=== PATIENT | female | born 1970 | race Caucasian/White ===

== ENCOUNTER 2016-08-20 15:02 | Emergency (ER) | payer MEDICAID, OTHER ==
[~2016-08-20] VITALS: Wt 70.0 kg
[2016-08-20] MEDS ORDERED: hydrALAzine 20 MG INJ IV ONE (22:30)
[2016-08-20 22:32] VITALS: BP 132/75; PULSE 85
[2016-08-20] MEDS ORDERED: ACETAMINOPHEN 500 MG TAB PO STA (22:35)
[2016-08-20] MEDS ORDERED: ACETAMINOPHEN 500 MG TAB ONE (22:37)
--- NOTE | 2016-08-20 22:37 | RADRPT ---
PROCEDURE: CT Head without contrast. CLINICAL INDICATION: Headaches TECHNIQUE: The study was performed utilizing a GE 64-slice multidetector CT scanner. Direct spiral axial CT images of the brain were obtained from the vertex to the skull base without contrast. Cor onal and sagittal reformat images are provided. The CTDI vol is 39.64 mGy and the DLP is 554.95 mGy -cm. The images were reviewed on a PACS workstation. COMPARISON: No prior studies are available for comparison. FINDINGS: The ventricles and cortical sulci are within normal limits. The jordan-white matter differentiation i s maintained. No intra or extra-axial fluid collection or mass effect or shift in the midline struc tures is seen. The visualized paranasal sinuses, mastoid air cells, orbits, and calvarium are unrem arkable. IMPRESSION: Unremarkable CT of the head without contrast. RPTAT: HPNM Physician Ralph Date Time Electronically viewed and signed by Physician Ralph on 08/20/2016 22:37 /
[2016-08-20 22:51] LABS: ADD SCAN DIFF NO
[2016-08-20] MEDS ORDERED: METF1000 PO (22:52)
[2016-08-20] MEDS ORDERED: CAPT25TA3 PO (22:52)
[2016-08-20 23:05] LABS: CHLORIDE 99 mmol/L (97-110); INR 0.98; POTASSIUM 3.7 mmol/L (3.5-5.1); SODIUM 136 mmol/L (135-144)
[2016-08-20 23:06] LABS: BASOPHILS % 0.5 % (0.0-2.0); EOSINOPHILS # 0.1 10^3/ul (0.0-0.5); EOSINOPHILS % 0.9 % (0.0-7.0); HEMATOCRIT 33.5 % (37.0-47.0); HEMOGLOBIN 10.3 g/dl (12.0-16.0); LYMPHOCYTES # 3.1 10^3/ul (0.8-2.9); LYMPHOCYTES % 35.5 % (15.0-51.0); MEAN CORPUSCULAR HEMOGLOBIN 21.1 pg (29.0-33.0); MEAN CORPUSCULAR HGB CONC 30.7 g/dl (32.0-37.0); MEAN CORPUSCULAR VOLUME 68.8 fl (82.0-101.0); MEAN PLATELET VOLUME 10.6 fl (7.4-10.4); MONOCYTE # 0.5 10^3/ul (0.3-0.9); MONOCYTES % 5.9 % (0.0-11.0); NEUTROPHIL # 4.9 10^3/ul (1.6-7.5); PARTIAL THROMBOPLASTIN TIME 30.6 Sec (25.0-35.0); PLATELET COUNT 291 10^3/UL (140-415); RED BLOOD COUNT 4.87 10^6/ul (4.20-5.40); RED CELL DISTRIBUTION WIDTH 17.6 % (11.5-14.5); WHITE BLOOD COUNT 8.6 10^3/ul (4.8-10.8)
[2016-08-20 23:08] LABS: ANION GAP 17 (8-16); BLOOD UREA NITROGEN 11 mg/dl (7-20); CARBON DIOXIDE 24 mmol/L (21-31); CREATININE 0.48 mg/dl (0.44-1.00)
[2016-08-20 23:09] LABS: CALCIUM 8.9 mg/dl (8.4-10.2); GLUCOSE 256 mg/dl (70-220)
--- NOTE | 2016-08-20 23:11 | RADRPT ---
PROCEDURE: XR Chest. CLINICAL INDICATION: Headache. Chest pain. TECHNIQUE: Single frontal view of the chest was obtained COMPARISON: None FINDINGS: The heart and mediastinum are within normal limits. The lungs are clear. There is no pleural effusion or pneumothorax. IMPRESSION: No acute disease. RPTAT: [facility] Physician Sowmya Date Time Electronically viewed and signed by Physician Sowmya on 08/20/2016 23:10 RS/
[2016-08-20 23:29] LABS: TROPONIN-I < 0.012 ng/ml (0.00-0.12)
[2016-08-21] MEDS ORDERED: LORA1TAB PO (00:25)
--- NOTE | 2016-08-21 00:25 | ERD ---
ER Documentation Chief Complaint Date/Time DATE: 08/21/16 TIME: 00:23 Chief Complaint HEADACHE AND FACIAL NUMBNESS FOR 3 DAYS. NO NEURO MOTOR DEFICIT HPI Is a 46 year female, with headache and vision over 3 days. She denies any focal neurologic complaints. She denies any trauma. She denies any visual acuity changes. Patient states that she has had some tearing from the affected side. Denies any other current issues ROS All systems reviewed and are negative except as per history of present illness. Medications Home Meds Reported Medications Captopril* (Captopril*) 25 Mg Tablet, 25 MG PO DAILY, #30 TAB 08/20/16 Metformin Hcl* (Metformin Hcl*) 1,000 Mg Tablet, 1000 MG PO WITH BREAKFAST DINNE , #60 TAB 08/20/16 Allergies Allergies: Coded Allergies: No Known Allergy (Unverified , 08/20/16) PMhx/Soc History of Surgery: No Anesthesia Reaction: No Hx Neurological Disorder: No Hx Respiratory Disorders: No Hx Cardiac Disorders: Yes (HTN) Hx Psychiatric Problems: No Hx Miscellaneous Medical Probl: Yes (DM) Hx Alcohol Use: No Hx Substance Use: No Hx Tobacco Use: No Smoking Status: Never smoker Physical Exam Vitals Vital Signs Date Time Temp Pulse Resp B/P Pulse Ox O2 Delivery O2 Flow Rate FiO2 08/20/16 22:32 85 132/75 08/20/16 15:12 98.8 115 20 215/100 98 Physical Exam Const: [] Head: Atraumatic Eyes: Normal Conjunctiva ENT: Normal External Ears, Nose and Mouth. Neck: Full range of motion..~ No meningismus. Resp: Clear to auscultation bilaterally Cardio: Regular rate and rhythm, no murmurs Abd: Soft, non tender, non distended. Normal bowel sounds Skin: No petechiae or rashes Back: No midline or flank tenderness Ext: No cyanosis, or edema Neur: Awake and alert Psych: Normal Mood and Affect Result Diagram: 08/20/16222908/20/162229 Results 24 hrs Laboratory Tests Test 08/20/16 22:30 Activated Partial Thromboplast Time 30.6Sec Anion Gap 17 Basophils # 0.010^3/ul Basophils % 0.5% Blood Urea Nitrogen 11mg/dl Calcium Level 8.9mg/dl Carbon Dioxide Level 24mmol/L Chloride Level 99mmol/L Creatinine 0.48mg/dl Eosinophils # 0.110^3/ul Eosinophils % 0.9% Glucose Level 256mg/dl Hematocrit 33.5% Hemoglobin 10.3g/dl INR International Normalized Ratio 0.98 Lymphocytes # 3.110^3/ul Lymphocytes % 35.5% Mean Corpuscular Hemoglobin 21.1pg Mean Corpuscular Hemoglobin Concent 30.7g/dl Mean Corpuscular Volume 68.8fl Mean Platelet Volume 10.6fl Monocytes # 0.510^3/ul Monocytes % 5.9% Neutrophils # 4.910^3/ul Neutrophils % 57.0% Nucleated Red Blood Cells # 0.010^3/ul Nucleated Red Blood Cells % 0.0/100WBC Platelet Count 73441^3/UL Potassium Level 3.7mmol/L Prothrombin Time 13.0Sec Prothrombin Time Ratio 1.0 Red Blood Count 4.8710^6/ul Red Cell Distribution Width 17.6% Sodium Level 136mmol/L Troponin I < 0.012ng/ml White Blood Count 8.610^3/ul Current Medications Medications (Trade) Dose Ordered Sig/Kimberly Route PRN Reason Start Time Stop Time Status Last Admin Dose Admin Clonidine (Catapres) 0.1 mg ONCE ONCE PO 08/20/16 22:00 08/20/16 22:01 DC 08/20/16 22:00 Hydralazine HCl (Apresoline) 20 mg ONCE ONCE IV 08/20/16 22:30 08/20/16 22:31 DC Acetaminophen (Tylenol Tab) 1,000 mg ONCE STAT PO 08/20/16 22:35 08/20/16 22:37 DC 08/20/16 22:40 Acetaminophen (Tylenol Tab) 500 mg STK-MED ONCE .ROUTE 08/20/16 22:37 08/20/16 22:38 DC Procedures/MDM EKG: Rate/Rhythm: Normal Sinus Rhythm QRS, ST, T-waves: No changes consistent w/ acute ischemia Impression: No evidence of ischemia or arrhythmia Chest X-ray 1V Interpreted by me: Soft Tissue: No acute abnormalities Bones: No acute abnormalities Mediastinum/Cardiac Silhouette/Lungs: No acute abnormalities CT of the head is negative. 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 Blood pressure is since normalized. This likely stress related issue. At this point is clinically stable feels much better and has some numbness present resolution. She is continues to be nonfocal neurological. She will be discharged home with a short course of lorazepam. Departure Diagnosis: Primary Impression: Panic attack Condition: Stable RENATE FERNÁNDEZ Aug 21, 2016 00:24
== END 2016-08-21 01:50 | disposition home or self-care (01) ==
LOC: E/R 15:02
DX: F41.0 Panic disorder [episodic paroxysmal anxiety] (principal); E11.9 Type 2 diabetes mellitus without complications; I10 Essential (primary) hypertension; R07.9 Chest pain, unspecified; Z79.84 Long term (current) use of oral hypoglycemic drugs
CPT/HCPCS: 70450; 71010; 80048; 84484; 85025; 85610; 85730; 93005; Z7502; Z7610

== ENCOUNTER 2016-11-09 16:12 | Emergency (ER) | payer MEDICAID ==
[~2016-11-09] VITALS: Wt 68.0 kg
[~2016-11-09 16:12] MED LIST: CAPT25TA3 PO; LORA1TAB PO; METF1000 PO
--- NOTE | 2016-11-09 16:47 | ERA ---
ER Documentation Chief Complaint Date/Time DATE: 11/09/16 TIME: 16:46 Chief Complaint CHEST PAIN HPI The patient is a 46-year-old female, presenting to the ER because of intermittent substernal chest pain that began yesterday about 10 AM at work. 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 She denies similar symptoms previously, denies fever, chills, neck pain, chest pain with exertion or vomiting or diaphoresis. She denies abdominal pain complain of nausea and vomited 3 times, initially foot then mucus. She denies dysuria, polyuria, diarrhea. She does not drink nor does any illicit drug, smokes socially. She stopped taking her Metformin and captopril about 2 months ago Past medical history: Hypertension, diabetes mellitus Past surgical history: None ROS All systems reviewed and are negative except as per history of present illness. Medications Home Meds Active Scripts Lisinopril* (Lisinopril*) 5 Mg Tablet, 5 MG PO DAILY, #30 TAB Prov:PREETHI GALINDO MD 11/09/16 Metformin Hcl* (Metformin Hcl*) 500 Mg Tablet, 500 MG PO WITH BREAKFAST DINNE, # 30 TAB Prov:PREETHI GALINDO MD 11/09/16 Discontinued Reported Medications Captopril* (Captopril*) 25 Mg Tablet, 25 MG PO DAILY, #30 TAB 08/20/16 Metformin Hcl* (Metformin Hcl*) 1,000 Mg Tablet, 1000 MG PO WITH BREAKFAST DINNE , #60 TAB 08/20/16 Discontinued Scripts Lorazepam* (Lorazepam*) 1 Mg Tablet, 1 MG PO Q8H Y for ANXIETY, #10 TAB Prov:RENATE FERNÁNDEZ 08/21/16 Allergies Allergies: Coded Allergies: No Known Allergy (Unverified , 11/09/16) PMhx/Soc History of Surgery: No Anesthesia Reaction: No Hx Neurological Disorder: No Hx Respiratory Disorders: No Hx Cardiac Disorders: Yes (HTN) Hx Psychiatric Problems: No Hx Miscellaneous Medical Probl: Yes (DM) Hx Alcohol Use: No Hx Substance Use: No Hx Tobacco Use: No Physical Exam Vitals Vital Signs Date Time Temp Pulse Resp B/P Pulse Ox O2 Delivery O2 Flow Rate FiO2 11/09/16 19:25 98.7 68 17 131/68 100 Room Air 11/09/16 16:15 98.4 100 18 187/93 100 Physical Exam Const: No acute distress. Head: Atraumatic. Eyes: Normal Conjunctiva. ENT: Normal External Ears, Nose and Mouth. Neck: Full range of motion. No meningismus. Resp: Clear to auscultation bilaterally. Cardio: Regular rate and rhythm, no murmurs. Abd: Soft, non distended, normal bowel sounds, non tender. Skin: No petechiae or rashes. Back: No midline or flank tenderness. Ext: No cyanosis, or edema. Neur: Awake and alert. No focal deficit Psych: Normal Mood and Affect. Result Diagram: 11/09/16 1710 11/09/16 1710 Results 24 hrs Laboratory Tests Test 11/09/16 17:10 11/09/16 18:15 White Blood Count 8.110^3/ul Red Blood Count 4.8310^6/ul Hemoglobin 10.6g/dl Hematocrit 33.9% Mean Corpuscular Volume 70.2fl Mean Corpuscular Hemoglobin 21.9pg Mean Corpuscular Hemoglobin Concent 31.3g/dl Red Cell Distribution Width 15.9% Platelet Count 14060^3/UL Mean Platelet Volume 10.4fl Neutrophils % 61.6% Lymphocytes % 31.2% Monocytes % 5.3% Eosinophils % 1.2% Basophils % 0.6% Nucleated Red Blood Cells % 0.0/100WBC Neutrophils # 5.010^3/ul Lymphocytes # 2.510^3/ul Monocytes # 0.410^3/ul Eosinophils # 0.110^3/ul Basophils # 0.110^3/ul Nucleated Red Blood Cells # 0.010^3/ul Sodium Level 133mmol/L Potassium Level 4.0mmol/L Chloride Level 97mmol/L Carbon Dioxide Level 26mmol/L Anion Gap 14 Blood Urea Nitrogen 10mg/dl Creatinine 0.50mg/dl Glucose Level 317mg/dl Calcium Level 9.2mg/dl Total Bilirubin 0.1mg/dl Direct Bilirubin 0.00mg/dl Indirect Bilirubin 0.1mg/dl Aspartate Amino Transf (AST/SGOT) 50IU/L Alanine Aminotransferase (ALT/SGPT) 70IU/L Alkaline Phosphatase 150IU/L Troponin I < 0.012ng/ml Total Protein 8.4g/dl Albumin 4.2g/dl Globulin 4.20g/dl Albumin/Globulin Ratio 1.00 Lipase 143U/L Bedside Urine pH (LAB) 6.5 Bedside Urine Protein (LAB) Negative Bedside Urine Glucose (UA) 0.50% Bedside Urine Ketones (LAB) Negative Bedside Urine Blood Trace-intact Bedside Urine Nitrite (LAB) Negative Bedside Urine Leukocyte Esterase (L Negative Current Medications Medications (Trade) Dose Ordered Sig/Kimberly Route PRN Reason Start Time Stop Time Status Last Admin Dose Admin Pantoprazole (Protonix Iv) 40 mg ONCE ONCE IV 11/09/16 17:00 11/09/16 17:01 DC 11/09/16 17:13 Lorazepam (Ativan) 0.5 mg ONCE ONCE PO 11/09/16 17:30 11/09/16 17:31 DC 11/09/16 17:14 Procedures/[place] [id number] Radiology Main Line: [phone] DIAGNOSTIC IMAGING REPORT Patient: NINA ROMO : 1970 Age: 46 Sex: F MR #: [id number] DOS: 11/09/16 1654 Ordering MD: PREETHI GALINDO MD Location: E/R Room/Bed: PROCEDURE: XR Chest. CLINICAL INDICATION: Abdominal pain. TECHNIQUE: Single frontal view of the chest was obtained. COMPARISON: Chest x-ray 08/20/2016 10:24 p.m. FINDINGS: The soft tissues are normal. There are degenerative osteophytes in the thoracic spine. The heart, cardiomediastinal silhouette and hilar structures are normal. The pulmonary vasculature is normal. There is a left-sided aorta. The lungs are clear. The costophrenic angles are normal. IMPRESSION: 1. Normal chest x-ray. RPTAT:AAJJ Physician Michelle Date Time Electronically viewed and signed by Physician Michelle on 11/09/2016 17:45 JM/ CC: PREETHI GALINDO MD EKG: Read by emergency physician Rate/Rhythm: Normal Sinus Rhythm 86 beats/min QRS, ST, T-waves: No ST elevation, no T inversion, nonspecific ST and T abnormality Impression: Abnormal EKG MEDICAL MAKING DECISION: The patient is a 46-year-old female, presenting with acute anxiety attack, acute distress, acute chest pain most likely due to acute anxiety attack and acute stress. She was treated with Protonix 40 mg IV for epigastric abdominal pain and Ativan 0.5 mg p.o. for acute anxiety attack with good response. The differential diagnoses considered include but are not limited to acute coronary syndrome, acute myocardial infarction, pericarditis, pulmonary embolism , aortic dissection, pneumonia, pleural effusion, pneumothorax, GERD, chest wall pain. Departure Diagnosis: Primary Impression: Anxiety Additional Impression: Chest pain Condition: Good Comments I refill her medication including metformin and lisinopril I discussed the findings with the patient. I advised the patient to follow-up with the primary physician in about 1-2 days, sooner if needed and return if any concern. PREETHI GALINDO MD November 09, 2016 16:47
[2016-11-09] MEDS ORDERED: PANTOPRAZOLE 40 MG INJ IV ONE (17:00)
[2016-11-09 17:19] LABS: ADD SCAN DIFF NO
[2016-11-09 17:20] LABS: BASOPHIL # 0.1 10^3/ul (0.0-0.1); BASOPHILS % 0.6 % (0.0-2.0); EOSINOPHILS # 0.1 10^3/ul (0.0-0.5); EOSINOPHILS % 1.2 % (0.0-7.0); HEMATOCRIT 33.9 % (37.0-47.0); HEMOGLOBIN 10.6 g/dl (12.0-16.0); LYMPHOCYTES # 2.5 10^3/ul (0.8-2.9); LYMPHOCYTES % 31.2 % (15.0-51.0); MEAN CORPUSCULAR HEMOGLOBIN 21.9 pg (29.0-33.0); MEAN CORPUSCULAR HGB CONC 31.3 g/dl (32.0-37.0); MEAN CORPUSCULAR VOLUME 70.2 fl (82.0-101.0); MEAN PLATELET VOLUME 10.4 fl (7.4-10.4); MONOCYTE # 0.4 10^3/ul (0.3-0.9); MONOCYTES % 5.3 % (0.0-11.0); NEUTROPHILS % 61.6 % (39.0-77.0); PLATELET COUNT 264 10^3/UL (140-415); RED BLOOD COUNT 4.83 10^6/ul (4.20-5.40); RED CELL DISTRIBUTION WIDTH 15.9 % (11.5-14.5); WHITE BLOOD COUNT 8.1 10^3/ul (4.8-10.8)
[2016-11-09] MEDS ORDERED: LORAZEPAM 0.5 MG TAB PO ONE (17:30)
[2016-11-09 17:40] LABS: ALANINE AMINOTRANSFERASE 70 IU/L (13-69); ALBUMIN 4.2 g/dl (3.3-4.9); ALKALINE PHOSPHATASE 150 IU/L (42-121); ANION GAP 14 (8-16); ASPARTATE AMINO TRANSFERASE 50 IU/L (15-46); BILIRUBIN,INDIRECT 0.1 mg/dl (0-1.1); BILIRUBIN,TOTAL 0.1 mg/dl (0.2-1.3); BLOOD UREA NITROGEN 10 mg/dl (7-20); CALCIUM 9.2 mg/dl (8.4-10.2); CARBON DIOXIDE 26 mmol/L (21-31); CHLORIDE 97 mmol/L (97-110); GLUCOSE 317 mg/dl (70-220); SODIUM 133 mmol/L (135-144); TOTAL PROTEIN 8.4 g/dl (6.1-8.1)
--- NOTE | 2016-11-09 17:46 | RADRPT ---
PROCEDURE: XR Chest. CLINICAL INDICATION: Abdominal pain. TECHNIQUE: Single frontal view of the chest was obtained. COMPARISON: Chest x-ray 08/20/2016 10:24 p.m. FINDINGS: The soft tissues are normal. There are degenerative osteophytes in the thoracic spine. The heart, cardiomediastinal silhouette and hilar structures are normal. The pulmonary vasculature is normal. There is a left-sided aorta. The lungs are clear. The costophrenic angles are normal. IMPRESSION: 1. Normal chest x-ray. RPTAT:AAJJ Physician Michelle Date Time Electronically viewed and signed by Roosevelt Ryder Physician on 11/09/2016 17:45 /
[2016-11-09 17:57] LABS: TROPONIN-I < 0.012 ng/ml (0.00-0.12)
[2016-11-09 18:13] LABS: URINE BLOOD (Dip) POC Trace-intact (NEGATIVE)
[2016-11-09 19:25] VITALS: TEMP 98.7
[2016-11-09] MEDS ORDERED: METF500T4 PO (19:38)
[2016-11-09] MEDS ORDERED: LISI-313 PO (19:38)
[2016-11-09] MEDS ORDERED: ACETAMINOPHEN 325 MG TAB ONE (19:54)
[2016-11-09 19:56] VITALS: BP 142/87; PULSE 79; RESP 18
[2016-11-09] MEDS ORDERED: ACETAMINOPHEN 325 MG TAB PO ONE (20:00)
== END 2016-11-09 19:56 | disposition home or self-care (01) ==
LOC: E/R 16:12
DX: F41.9 Anxiety disorder, unspecified (principal); E11.9 Type 2 diabetes mellitus without complications; I10 Essential (primary) hypertension; Z79.84 Long term (current) use of oral hypoglycemic drugs
CPT/HCPCS: 36415; 71010; 80053; 81003; 83690; 84484; 85025; 96374; C9113; Z7502; Z7610

== ENCOUNTER 2017-08-01 09:00 | Emergency (ER) | END 2017-08-01 10:56 | disposition home or self-care (01) ==